=== PATIENT | female | born 1985 | race Caucasian/White ===

== ENCOUNTER → 2018-01-16 08:09 | Outpatient (CLI) | payer OTHER, SELFPAY ==
[2018-01-16 08:32] LABS: Initial Volume 1.9 mL; Semen 30 min. Liquification? YES
== END ==
PROVIDERS: Family Provider Obstetrics & Gynecology; PCP Obstetrics & Gynecology; Visit Provider Obstetrics & Gynecology
DX: Z87.42 Personal history of other diseases of the female genital tract (principal)
CPT/HCPCS: 58323

== ENCOUNTER → 2018-02-11 07:19 | Outpatient (CLI) | payer OTHER, SELFPAY ==
[2018-02-11 08:20] LABS: Semen 30 min. Liquification? Yes
[2018-02-11 08:21] LABS: Final Volume 0.5 mL; Initial Volume 1.5 mL
== END ==
PROVIDERS: Family Provider Obstetrics & Gynecology; Visit Provider Specialist
DX: N97.0 Female infertility associated with anovulation (principal)
CPT/HCPCS: 58323

== ENCOUNTER → 2018-03-07 08:56 | Outpatient (CLI) | payer OTHER, SELFPAY ==
[2018-03-07 10:06] LABS: Initial Volume 3.5 mL; Semen 30 min. Liquification? Yes
[2018-03-07 10:15] LABS: Final Volume 0.5 mL
== END ==
PROVIDERS: Family Provider Obstetrics & Gynecology; Visit Provider Obstetrics & Gynecology
DX: N97.0 Female infertility associated with anovulation (principal)
CPT/HCPCS: 58323

== ENCOUNTER → 2018-10-07 06:59 | Outpatient (CLI) | payer OTHER, SELFPAY ==
[2018-10-07 07:59] LABS: HCG Quantitative /Beta subunit < 2.39 mIU/mL
== END ==
PROVIDERS: Visit Provider Obstetrics & Gynecology Reproductive Endocrinology
DX: Z32.00 Encounter for pregnancy test, result unknown (principal)
CPT/HCPCS: 36415; 84702

== ENCOUNTER → 2019-03-01 08:32 | Outpatient (CLI) | payer OTHER, SELFPAY ==
[2019-03-01 09:26] LABS: HCG Quantitative /Beta subunit < 2.39 mIU/mL
== END ==
PROVIDERS: Visit Provider Obstetrics & Gynecology Reproductive Endocrinology
DX: Z32.01 Encounter for pregnancy test, result positive (principal)
CPT/HCPCS: 36415; 84702

== ENCOUNTER → 2019-07-23 12:04 | Outpatient (CLI) | payer OTHER, SELFPAY ==
[2019-07-23 12:43] LABS: Add Manual Diff / Slide Review NO; Basophils Absolute Auto 0 /uL (0-100); Basophils Percent Auto 0.6 % (0-2); Eosinophils Absolute Auto 100 /uL (0-450); Hematocrit 35.5 % (36-46); Hemoglobin 12.7 g/dL (12.0-16.0); Lymphocytes Absolute Auto 2100 /uL (1100-4500); Lymphocytes Percent Auto 29.3 % (25-40); Mean Corpuscular HGB Conc 35.6 % (30-36); Monocytes Absolute Auto 400 /uL (0-900); Monocytes Percent Auto 5.9 % (3-14); Neutrophils Absolute Auto 4500 /uL (1500-7000); Neutrophils Percent Auto 63.2 % (50-75); Platelet Count 285 X10^3/uL (150-400); Red Blood Cell Count 4.08 X10^6/uL (4.0-5.2); Red Cell Distribution Width 12.8 % (11.6-14.8); White Blood Cell Count 7.1 X10^3/uL (4.5-11.0)
[2019-07-23 15:34] LABS: Appearance Urine UA CLEAR; Bilirubin Urine UA NEGATIVE (NEGATIVE); Color Urine UA YELLOW; Glucose Urine UA NEGATIVE (Negative); Ketones Urine UA NEGATIVE (NEGATIVE); Leukocyte Esterase Urine UA NEGATIVE (NEGATIVE); Nitrite Urine UA NEGATIVE (Negative); Occult Blood Urine UA NEGATIVE (Negative); Protein Urine UA NEGATIVE (Negative); Urobilinogen Urine UA 0.2 E.U./dL (0.2)
[2019-07-23 15:39] LABS: pH Urine UA 6.5 (4.5-8.0)
[2019-07-23 16:03] LABS: Hepatitis B Surface Antigen NEGATIVE s/c (NEGATIVE)
[2019-07-23 16:23] LABS: HIV 1 & 2 Ab/Ag 4th Gen Combo NEGATIVE (NEGATIVE); Hep C Virus Ab w/Reflex Quant NEGATIVE s/c (NEGATIVE)
[2019-07-25 19:57] LABS: RPR Screen Nonreactive (Nonreactive)
== END ==
PROVIDERS: PCP Family Medicine; Referring Provider Specialist; Visit Provider Specialist
DX: Z34.81 Encounter for supervision of other normal pregnancy, first trimester (principal)
CPT/HCPCS: 36415; 80055; 81003; 86787; 86803; 86850; 86900; 86901; 87086; 87389

== ENCOUNTER → 2019-08-23 10:15 | Outpatient (CLI) | payer OTHER, SELFPAY ==
[2019-08-25 20:35] LABS: AFP, Serum 55.2 ng/mL (.); Estriol, Free 1.11 ng/mL (.); Inhibin A, MoM 1.03 (.); Maternal Ethnicity Caucasian (.); Maternal Weight 130 lbs (.); Number of Fetuses No (.); OSBR Risk 1 IN 4273 (.); Results Report (.); Test Results *Screen Negative* (.); hCG, MoM 1.05 (.); hCG, Serum 39565 mIU/mL (.)
== END ==
PROVIDERS: PCP Family Medicine; Referring Provider Specialist; Visit Provider Specialist
DX: Z34.82 Encounter for supervision of other normal pregnancy, second trimester (principal); Z3A.16 16 weeks gestation of pregnancy
CPT/HCPCS: 36415; 82105; 82677; 84702; 86336

== ENCOUNTER → 2019-09-16 10:01 | Outpatient (CLI) | payer OTHER, SELFPAY ==
--- NOTE | 2019-09-16 10:02 | DI.US.S_ITS ---
PROCEDURE: US OB >= 14 WEEKS FETUS INDICATIONS: ANATOMY OUTSIDE/PRIOR DATING DATA: Last menstrual period (LMP): Unknown. LMP-based estimated date of delivery (KARAN): N./A. First dating scan (date and location): Dr. Jarquin's office, 06/25/19. Estimated date of delivery (KARAN) from first dating scan: 01/29/20. TECHNIQUE: Real-time scanning was performed of the fetus, with image documentation and biometric measurements. COMPARISON: [facility], , OB <= 14 WEEKS FETUS, 06/25/2019, 16:56. FINDINGS: General: A single live intrauterine gestation is present. Presentation: Breech. Placenta: Placental position is left fundal, without previa. Amniotic fluid index: 14.5 cm, normal range is 5-24 cm. heart rate: 152 beats per minute. Maternal cervical canal: 3.9 cm long. Normal lower limit is 2.5 cm. biometrics: Biparietal diameter: 5.1 cm equals 21 weeks 3 days Head circumference: 18.9 cm equals 21 weeks 1 day Abdominal circumference: 13.6 cm equals 20 weeks 5 days Femur length: 3.5 cm equals 21 weeks 1 day Estimated gestational age from initial scan: 20 weeks 5 days Composite gestational age from present scan: 21 weeks 1 day Estimated weight and percentile: 390 g, 59th percentile Measurement variability for biometric dating: +/- 7 days from 14 weeks to 15 weeks 6 days gestation, +/- 10 days from 16 weeks to 21 weeks 6 days gestation, +/- 2 weeks from 22 weeks to 27 weeks 6 days gestation, +/- 3 weeks for 28 weeks gestation or later. weight reference: 4500 g or EFW >90/95% is considered macrosomia or large for gestational age. EFW <10% is small for gestational age. EFW 5% or less is considered intra-uterine growth restriction. Anatomic survey: Neuro: Ventricles are non-dilated at less than 10 mm. Cisterna magna is normal at 3-11 mm. Cerebellum is normal in size and morphology. Nuchal skin fold: Normal at less than 6 mm between 14-21 weeks gestational age. Face: Nose and lips, facial profile are normal. Spine: No evidence for spina bifida. Heart: 4-chambered heart is present, with normal ventricular outflow tracts. Diaphragm: Diaphragm is intact. Stomach: Left-sided stomach is present. Kidneys: No hydronephrosis. Normal is less than 5 mm in 2nd trimester, less than 7 mm in 3rd trimester. Cord: 3-vessel cord has orthotopic insertion. Bladder: Normal in size. Extremities: All 4 extremities identified. IMPRESSION: A single live intrauterine is seen. No significant discrepancy is found between the estimated gestational age based on these images and the estimated gestational age based upon the 1st dating scan. No anatomic abnormalities are identified. Dictated by: Aramis Morton M.D. on 09/16/2019 at 11:58 Approved by: Aramis Morton M.D. on 09/16/2019 at 12:01
== END ==
PROVIDERS: PCP Family Medicine; Referring Provider Specialist; Visit Provider Specialist
DX: Z34.82 Encounter for supervision of other normal pregnancy, second trimester (principal); Z3A.21 21 weeks gestation of pregnancy
CPT/HCPCS: 76811

== ENCOUNTER → 2019-10-23 08:11 | Outpatient (CLI) | payer OTHER, SELFPAY ==
[2019-10-23 10:44] LABS: Hemoglobin 9.8 g/dL (12.0-16.0)
[2019-10-23 11:44] LABS: GTT (PREG) 1 Hour PP 50gm Dose 101 mg/dL (76-139)
== END ==
PROVIDERS: PCP Family Medicine; Referring Provider Specialist; Visit Provider Specialist
DX: Z34.82 Encounter for supervision of other normal pregnancy, second trimester (principal)
CPT/HCPCS: 82950; 85014; 85018

== ENCOUNTER → 2019-12-01 12:15 | Outpatient (CLI) | payer OTHER, SELFPAY | PROVIDERS: PCP Family Medicine; Visit Provider Specialist | DX: Z34.83 Encounter for supervision of other normal pregnancy, third trimester (principal) | CPT/HCPCS: 87086 ==

== ENCOUNTER → 2019-12-29 09:49 | Outpatient (CLI) | payer OTHER, SELFPAY ==
[2019-12-30 11:13] LABS: Strep Grp B PCR NEG for Grp B Strep
== END ==
PROVIDERS: PCP Family Medicine; Visit Provider Specialist
DX: Z34.83 Encounter for supervision of other normal pregnancy, third trimester (principal); Z3A.35 35 weeks gestation of pregnancy
CPT/HCPCS: 87653

== ENCOUNTER 2020-01-28 11:45 | Inpatient (IN) | payer OTHER, SELFPAY ==
[2020-01-28 12:26] LABS: Add Manual Diff / Slide Review NO; Basophils Absolute Auto 100 /uL (0-100); Eosinophils Absolute Auto 100 /uL (0-450); Eosinophils Percent Auto 1.2 % (2-4); Hematocrit 31.6 % (36-46); Hemoglobin 11.2 g/dL (12.0-16.0); Lymphocytes Absolute Auto 2300 /uL (1100-4500); Lymphocytes Percent Auto 32.5 % (25-40); Mean Corpuscular HGB Conc 35.5 % (30-36); Mean Corpuscular Hemoglobin 32.4 PG (26-34); Mean Corpuscular Volume 91.4 fL (80-100); Monocytes Absolute Auto 400 /uL (0-900); Monocytes Percent Auto 5.8 % (3-14); Neutrophils Absolute Auto 4300 /uL (1500-7000); Neutrophils Percent Auto 59.5 % (50-75); Platelet Count 232 X10^3/uL (150-400); Red Blood Cell Count 3.45 X10^6/uL (4.0-5.2); Red Cell Distribution Width 12.8 % (11.6-14.8); White Blood Cell Count 7.2 X10^3/uL (4.5-11.0)
[2020-01-28 13:20] LABS: COVID19 -Nasal RAPID Negative (Negative)
[2020-01-28 14:54] VITALS: BP 99/54
[2020-01-28] MEDS: LACTATED RINGERS 1,000 ML 100 ML IV (15:13)
[2020-01-28] MEDS: FENT 2MCG/ML BUPIV 0.125% EPI 200 MCG/100 ML PLAST..BAG 10 MCG EPIDURAL (16:00)
[2020-01-28] MEDS: OXYTOCIN 10 UNIT/ML VIAL 20 UNIT (16:50)
--- NOTE | 2020-01-28 18:10 | PM.OBHP.1 ---
OB HPI Date/Time Date of admission: 01/28/20 Date Patient Seen: 01/28/20 Time Patient Seen: 12:00 History of Present Condition Chief complaint: maternity : 2 Para: 1 Estimated Date of Delivery: 02/01/20 Estimated Gestational Age (weeks): 39 Narrative: Rosie Gordon is a 34 year old female admitted for AROM induction at 39 weeks for advanced cervical dilation Indications Indication for induction OB: history of rapid labor History of Present care: good care, initiated at week # (6), number of visits (15) and pounds weight gain (22) Dating criteria: other (IVF) Ultrasounds: normal mid trimester US Obstetrical complications: none Medical complications: none Preadmission Labs Blood type: A (+) positive -: Antibody screen: negative, GBS status: negative, HBsAG: negative, HIV: negative and RPR/VDLR: negative -: Chlamydia screen: not detected and Gonorrhea screen: not detected -: Rubella: immune and Varicella: immune HCAB: negative Sequential screen: Negative 1 hr GTT: 104 Prior (ies) History: 07/01/2016 7 lb 11 oz female epidural catheter Evaluation Evaluation Baseline heart rate: 130 Variability: Moderate (11-25) monitor accelerations: Present monitor decelerations: Absent Contraction Frequency (minutes): 5 Uterine Contraction Intensity: Moderate Category of Tracing: Reactive Cervical dilation (cm): 5 Cervical effacement (%): 75 station: -1 Laboratory results: Laboratory Tests 01/28/20 01/28/20 01/28/20 12:07 12:15 12:15 WBC 7.2 RBC 3.45 L Hgb 11.2 L Hct 31.6 L MCV 91.4 MCH 32.4 MCHC 35.5 RDW 12.8 Plt Count 232 Neut % (Auto) 59.5 Lymph % (Auto) 32.5 [place] % (Auto) 5.8 Eos % (Auto) 1.2 L Baso % (Auto) 1.0 Neut # (Auto) 4300 Lymph # (Auto) 2300 [place] # (Auto) 400 Eos # (Auto) 100 Baso # (Auto) 100 COVID-19 PCR Negative Blood Type A Positive Antibody Screen Negative [facility] Medical History (Updated 01/28/20 @ 18:01 by Aracely Jaruqin MD) History of infertility (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) Migraines (Acute) Spontaneous vaginal delivery (Inactive) Surgical History (Updated 11/06/17 @ 11:55 by Patricia Ramírez) History of third molar tooth extraction (Resolved 2001) Status post loop electrosurgical excision procedure (LEEP) of cervix (Resolved 2010) Family History (Updated 06/24/19 @ 17:40 by Sadie Diaz RN) Family/Other Heart disease Family/Other Diabetes mellitus Social History marital status: education level: master's degree occupational status: employed special amauri needs: No Smoking Status: Never smoker second hand exposure: No alcohol intake: former substance use type: does not use Meds Home Medications and Allergies Home Medications Medication Instructions Recorded Confirmed Type prenat.vits,delonte,cbm-ozum-datxj 1 tab PO DAILY 07/23/19 01/27/20 History omeprazole 40 mg capsule,delayed 40 mg PO DAILY #30 cap 12/01/19 01/28/20 Rx release Allergies Allergy/AdvReac Type Severity Reaction Status Date / Time Penicillins [PENICILLINS] Allergy Mild HIVES Verified 01/28/20 14:57 Review of Systems Review of Systems Narrative: Patient denies headaches, scotomata, epigastric pain. Good movement. No rupture membranes. ROS: Yes All systems reviewed with the patient and are negative except as otherwise documented Exam Vital Signs (past 8 hours): - 01/28/20 14:54 Blood Pressure 99/54 L Narrative Exam Narrative: HEENT exam within normal limits. Lungs are clear to auscultation percussion. Heart is regular rate and rhythm no S3-S4 or murmurs. Abdomen is soft, nontender. Fetus is vertex. Extremities without edema and nontender. Objective Labs Result Diagrams: 01/28/20 12:15 Labs: Laboratory Results - last 24 hr 01/28/20 01/28/20 01/28/20 12:07 12:15 12:15 WBC 7.2 RBC 3.45 L Hgb 11.2 L Hct 31.6 L MCV 91.4 MCH 32.4 MCHC 35.5 RDW 12.8 Plt Count 232 Neut % (Auto) 59.5 Lymph % (Auto) 32.5 [place] % (Auto) 5.8 Eos % (Auto) 1.2 L Baso % (Auto) 1.0 Neut # (Auto) 4300 Lymph # (Auto) 2300 [place] # (Auto) 400 Eos # (Auto) 100 Baso # (Auto) 100 COVID-19 PCR Negative Blood Type A Positive Antibody Screen Negative Assessment and Plan Assessment and Plan Assessment and Plan narrative: 39 week gestation with advanced cervical dilation with concern for fast labor who was admitted for AROM induction. She is requesting epidural catheter for pain control. Anticipate vaginal delivery.
--- NOTE | 2020-01-28 18:15 | P.PCNOB_ITS ---
Labor & Delivery Delivery date: 01/28/20 Intrapartal events: None Induction method: AROM Delivery monitor: external FHT and external uterine Route of delivery: L&D Laceration Description: None Estimated blood loss (mL): 200 Narrative: Patient arrived on Labor and delivery for AROM induction. She was AROM for clear fluid. She received an epidural catheter for pain control. heart tones category 1 to category 2 throughout labor. heart tones with 2nd stage of labor were baseline 90s. This was treated with position change, O2, and fluids. She had a spontaneous vaginal delivery of a viable male infant. was placed on the maternal abdomen and after cord stopped pulsating the cord was clamped, cut, and cord bloods obtained. The placenta de livered spontaneously, intact, with 3 vessels. There were no cervical, vaginal, or perineal tears. Both infant and mother doing well. [place] Baby 1: gender: Male Presentation: vertex position: Right Occiput Anterior Placenta delivery description: Spontaneous cord vessel description: 3 Vessels score (1 min): 9 score (5 min): 9 Plan for aftercare: Routine care
[2020-01-28] MEDS: IBUPROFEN 600 MG TABLET PO (18:35)
[2020-01-29] MEDS: IBUPROFEN 600 MG TABLET PO ×2 (00:21→07:57)
[2020-01-29 05:49] LABS: Hematocrit 26.7 % (36-46); Hemoglobin 9.5 g/dL (12.0-16.0)
--- NOTE | 2020-01-29 08:50 | PM.OBDS.1 ---
Discharge Providers Provider Date of admission: 01/28/20 11:45 Discharge Date: 01/29/20 Primary care physician: Cyrus Payton MD Consults: 01/28/20 11:48 Consult to Anesthesiology Urgent Comment: Consulting Provider: Anesthesiologist Reason for consultation: Epidural Has provider been notified: No 01/29/20 18:02 Consult to Control Clerk Routine Comment: Discharge provider: Aracely Jarquin MD Summary Hospital Course Date Patient Seen: 01/29/20 Time Patient Seen: 08:50 Procedures: Epidural catheter, Spontaneous vaginal delivery Hospital Course: Patient arrived on Labor and delivery for AROM induction for fast labor and advanced cervical dilation. She received an epidural catheter for pain control. She had a spontaneous vaginal delivery with no tears. Patient is urinating and ambulating well. Pain is minimal. She denies any headaches, scotomata, epigastric pain. Peripartum Data Delivery Method: Natural Vaginal Laceration Description: None Procedures: Epidural catheter, spontaneous vaginal delivery complications: none [place] 1: Gender: Male Disposition of : home Discharge Diagnosis (1) Vaginal delivery: Status: Acute Status at Discharge Cognitive/behavioral status at discharge: oriented Functional status at discharge: independent ambulation Overall status at discharge: patient is progressing back to baseline Time Spent with Patient Time attestation: Total time spent providing and/or coordinating discharge services: Time spent: Less than 30 minutes Objective Labs Result Diagrams: 01/29/20 05:25 Labs: Laboratory Results - last 24 hr 01/28/20 01/28/20 01/28/20 12:07 12:15 12:15 WBC 7.2 RBC 3.45 L Hgb 11.2 L Hct 31.6 L MCV 91.4 MCH 32.4 MCHC 35.5 RDW 12.8 Plt Count 232 Neut % (Auto) 59.5 Lymph % (Auto) 32.5 [place] % (Auto) 5.8 Eos % (Auto) 1.2 L Baso % (Auto) 1.0 Neut # (Auto) 4300 Lymph # (Auto) 2300 [place] # (Auto) 400 Eos # (Auto) 100 Baso # (Auto) 100 COVID-19 PCR Negative Blood Type A Positive Antibody Screen Negative 01/29/20 05:25 WBC RBC Hgb 9.5 L Hct 26.7 L MCV MCH MCHC RDW Plt Count Neut % (Auto) Lymph % (Auto) [place] % (Auto) Eos % (Auto) Baso % (Auto) Neut # (Auto) Lymph # (Auto) [place] # (Auto) Eos # (Auto) Baso # (Auto) COVID-19 PCR Blood Type Antibody Screen Exam Vital Signs (past 8 hours): Blood pressure 102/67, pulse 60, temperature 98.1? Narrative Exam Narrative: Abdomen is soft, nontender. Uterus is firm, at U, nontender. Mild lochia. Extremities without edema and nontender. Patient is Rh positive, rubella immune, received the Tdap in the 3rd trimester Discharge Plan Discharge Plan Patient Disposition: Home Discharge orders & Medications Prescriptions: Continued prenat.vits,delonte,cac-bppv-nueoj Tablet 1 tab PO DAILY RF: 0 Discontinued omeprazole 40 mg capsule,delayed release(DR/EC) 40 mg PO DAILY Qty: 30 RF: 1 Follow up/Referrals: Aracely Jarquin MD [Physician] - 1 Month Cyrus Payton MD [Primary Care Provider] - Diet/Activity/Treatments Diet: Regular Activity: Nothing in vagina for 4 weeks Skin/Wound/Dressing Care Report to your healthcare provider any signs of infection, such as:: chills, fever and increased pain Discharge Data Primary Care Provider: Cyrus Payton Attending Provider: Aracely Jarquin Admit Date/Time: 01/28/20 11:45
== END 2020-01-29 11:30 | disposition home or self-care (01) | DRG 807 ==
PROVIDERS: Admitting Provider Specialist; PCP Family Medicine; Referring Provider Specialist; Visit Provider Specialist
DX: O76 Abnormality in fetal heart rate and rhythm complicating labor and delivery (principal); Z37.0 Single live birth; Z3A.39 39 weeks gestation of pregnancy
CPT/HCPCS: 01967; 36415; 59050; 59400; 76815; 85014; 85018; 85025; 86850; 86900; 86901; 87635; G0378; G0379; J2590

== ENCOUNTER → 2021-05-16 07:02 | Outpatient (CLI) | payer OTHER, SELFPAY ==
[2021-05-16 09:15] LABS: HCG Quantitative /Beta subunit 13.3 mIU/mL
== END ==
PROVIDERS: PCP Family Medicine; Referring Provider Obstetrics & Gynecology; Visit Provider Obstetrics & Gynecology
DX: Z34.81 Encounter for supervision of other normal pregnancy, first trimester (principal)
CPT/HCPCS: 36415; 84702

== ENCOUNTER → 2021-07-27 09:26 | Outpatient (CLI) | payer OTHER, SELFPAY ==
[2021-07-27 09:52] LABS: Final Volume 0.5 mL; Semen 30 min. Liquification? Yes
== END ==
PROVIDERS: PCP Family Medicine; Referring Provider Obstetrics & Gynecology; Visit Provider Obstetrics & Gynecology
DX: N97.0 Female infertility associated with anovulation (principal)
CPT/HCPCS: 58323

== ENCOUNTER → 2021-08-24 12:28 | Outpatient (CLI) | payer OTHER, SELFPAY ==
[2021-08-24 13:11] LABS: Initial Volume 3.5 mL; Semen 30 min. Liquification? Yes
[2021-08-24 13:49] LABS: Final Volume 0.5 mL
== END ==
PROVIDERS: PCP Family Medicine; Referring Provider Obstetrics & Gynecology; Visit Provider Obstetrics & Gynecology
DX: Z87.42 Personal history of other diseases of the female genital tract (principal)
CPT/HCPCS: 58323

== ENCOUNTER → 2021-10-23 06:53 | Outpatient (CLI) | payer OTHER, SELFPAY ==
[2021-10-23 08:27] LABS: Progesterone, Total 1.25 ng/mL
[2021-10-23 08:29] LABS: Free T4, Direct Thyroxine 1.29 ng/dL (0.78-2.19)
[2021-10-23 08:43] LABS: Thyroid Stimulating Hormone 4.07 uIU/mL (0.47-4.68)
[2021-10-25 16:37] LABS: ANA Screen, IFA Negative (.)
[2021-10-25 21:37] LABS: Dilute Russell Viper Venom 37.2 sec (0.0-47.0); Lupus Reflex Interpretation Comment: (.); PTT-LA 36.8 sec (0.0-51.9)
[2021-11-14 12:06] LABS: Cardiolipin IgA Negative
== END ==
PROVIDERS: PCP Family Medicine; Referring Provider Obstetrics & Gynecology; Visit Provider Obstetrics & Gynecology
DX: N96 Recurrent pregnancy loss (principal)
CPT/HCPCS: 36415; 81240; 81241; 81291; 83520; 84144; 84439; 84443; 85598; 85613; 86038; 86147; 86148

== ENCOUNTER → 2022-04-22 06:35 | Outpatient (CLI) | payer OTHER, SELFPAY ==
[2022-04-22 08:27] LABS: HCG Quantitative /Beta subunit 5130.1 mIU/mL
== END ==
PROVIDERS: PCP Family Medicine; Referring Provider Obstetrics & Gynecology; Visit Provider Obstetrics & Gynecology
DX: N91.2 Amenorrhea, unspecified (principal)
CPT/HCPCS: 36415; 84702

== ENCOUNTER → 2022-08-16 10:12 | Outpatient (CLI) | payer OTHER, SELFPAY ==
--- NOTE | 2022-08-16 10:14 | DI.US.S_ITS ---
PROCEDURE: US OB <= 14 WEEKS FETUS INDICATIONS: Early OB US OUTSIDE/PRIOR DATING DATA: Last menstrual period (LMP): 06/25/2022 LMP-based estimated date of delivery (KARAN): 04/01/2023 TECHNIQUE: Real-time scanning was performed of the fetus and maternal pelvic organs, with image documentation. Endovaginal scanning was also performed to better visualize the fetus and maternal ovaries. COMPARISON: [facility], US, US OB <= 14 WEEKS FETUS, 06/25/2019, 16:56. FINDINGS: Intrauterine gestational sac and yolk sac are seen. No definite pole. Mean gestational sac diameter is 1.5 cm, compatible with an estimated gestational age of 6 weeks 2 days. A probable perigestational sac hemorrhage is seen measuring 0.6 cm in maximum dimension. Maternal organs: Left ovarian corpus luteal cyst. IMPRESSION: Intrauterine gestational sac and yolk sac are seen without a definite pole. Mean gestational sac diameter is compatible with an estimated gestational age of 6 weeks 2 days. Findings are may be related to normal early although early failure is not excluded. Recommend correlation with serial beta HCG values and follow-up ultrasound. We strive to produce accurate, complete, and clear reports of imaging services. To assist us in improving patient care, this report was composed using standard report templates and voice recognition software. Therefore, it may contain abnormal punctuation, insertions and/or omissions. Occasional wrong-word or sound-alike substitutions may occur. Though we review the report and make efforts to correct it, we do recommend that the report be read carefully in proper context to recognize any text inaccuracies. Approved by: Diego Brooke M.D. on 08/16/2022 at 12:30
== END ==
PROVIDERS: PCP Family Medicine; Referring Provider Obstetrics & Gynecology; Visit Provider Obstetrics & Gynecology
DX: O34.81 Maternal care for other abnormalities of pelvic organs, first trimester (principal); N83.12 Corpus luteum cyst of left ovary; Z3A.01 Less than 8 weeks gestation of pregnancy; Z87.42 Personal history of other diseases of the female genital tract
CPT/HCPCS: 76801; 76817

== ENCOUNTER 2022-08-26 07:34 | Day surgery (SDC) | payer OTHER, SELFPAY ==
[2022-08-26] VITALS (7 sets, daily range): BP systolic 83–113; BP diastolic 43–71; PULSE 67–81; RESP 10–16; TEMP 36.2–36.7; O2SAT 97–100; BMI 19.5
--- NOTE | 2022-08-26 08:29 | PM.PREOP ---
Pre-operative Note COVID-19 COVID-19 status: Not tested Criteria for continued procedure: Possibility delay results in more complex future surgery or treatment Interval Note History & Physical reviewed/Exam performed by Physician: Yes Changes to H&P: No
--- NOTE | 2022-08-26 08:38 | PM.GYNHP.1 ---
History of Present Illness History of Present Illness Reason for admission: missed Narrative: Rosie Gordon is a 36 year old female here for suction D&C for incomplete A/B PFSH Medical History (Updated 08/23/22 @ 12:10 by Aracely Jarquin MD) History of infertility (08/16/16) Migraine with aura and without status migrainosus, not intractable (11/22/15) Spontaneous vaginal delivery Surgical History (Updated 08/13/22 @ 15:37 by Kassy Alejandre RN) History of third molar tooth extraction (2001) History of tonsillectomy Status post loop electrosurgical excision procedure (LEEP) of cervix (2010) Family History (Updated 08/13/22 @ 15:36 by Kassy Alejandre RN) Family/Other Heart disease Brother Hypothyroidism Social History marital status: number of children: 2 household members: spouse and children lives independently: Yes caregiver/support person: Yes housing: house pets and animals: Yes (2 dogs) education level: master's degree occupational status: employed (dentist) current occupational exposures/hazards: No special amauri needs: No travel history: other (Going to [place] in September) seatbelt use: always helmet use: Yes water heater temp set < 120 deg: Yes working smoke detector in home: Yes fire extinguisher in home: Yes carbon monox detector in home: Yes firearms in home: Yes firearms unloaded and locked: Yes do you feel safe at home: Yes Smoking Status: Never smoker second hand exposure: No alcohol intake: former substance use type: does not use during the past year weight has: remained stable well-balanced diet: daily or most days daily servings fruits/ve or more times/day caffeine: Yes (1 cup coffee in AM, aware of 200mg limit) Type(s) of exercise: bicycling (stationary bike) and running Meds Home Medications and Allergies Home Medications Medication Instructions Recorded Confirmed Type prenat.vits,delonte,ldt-vtap-gaxjr 1 tab PO DAILY 07/23/19 08/23/22 History cholecalciferol (vitamin D3) 50 50 mcg PO .every other day 08/13/22 08/26/22 History mcg (2,000 unit) capsule ferrous sulfate 325 mg (65 mg 325 mg PO DAILY 08/13/22 08/26/22 History iron) tablet (Feosol) progesterone micronized 200 mg 200 mg PO BID #60 caps 08/13/22 08/26/22 Rx capsule Allergies Allergy/AdvReac Type Severity Reaction Status Date / Time Penicillins [PENICILLINS] Allergy Mild HIVES Verified 08/26/22 07:49 Review of Systems Review of Systems Narrative: Patient has not had any vaginal bleeding or cramping. Ultrasound confirmation of demise at 7 weeks x2 48 hours apart. Exam Vital Signs (past 8 hours): - 08/26/22 07:54 Temperature 97.2 F L Pulse Rate 79 Respiratory Rate 16 Blood Pressure 113/71 Pulse Oximetry 100 Oxygen Delivery Method Room Air Oxygen Delivery Method Room Air Narrative Exam Narrative: HEENT exam within normal limits. Lungs are clear to auscultation percussion. Heart is regular rate and rhythm no S3-S4 murmurs. Abdomen is soft, nontender. Normal external genitalia. Ultrasound performed 08/25/2022 no heartbeat seen. Extremities without edema and nontender. Assessment & Plan Assessment and plan (1) Missed with demise before 20 completed weeks of gestation: Status: Acute Assessment & Plan narrative: Suction D&C. Consent form was reviewed with the patient. Minimal risk of reaction to medication or anesthesia, infection, bleeding, perforation of uterus that could need additional surgery to repair damage to internal structures such as bowel, bladder, ureters. Consent form signed on 08/25/2022 and questions answered. Time Spent With Patient Time with patient: less than 30 minutes
--- NOTE | 2022-08-26 08:44 | SUR.OPER ---
Lithotomy on padded OR bed, head on pillow, arms secured on padded arm boards at <90 degrees abduction. Legs secured in padded yellow fins stirrups.
--- NOTE | 2022-08-26 09:04 | P.OP_ITS ---
Operative Date/Time/Diagnoses Date of procedure: 08/26/22 Time of procedure: 09:04 Pre-op diagnosis: Missed Post-op diagnosis: same Procedure & Clinicians Procedure: Suction D&C Same procedure as scheduled: Yes Indications: Documented demise at 7 weeks Surgeon: Aracely Jarquin Click Yes if Unassisted: Yes Anesthesia Type: General Operative Notes Findings: Moderate amount of retained products of conception Closure Type: not applicable Specimen(s): other (Uterine contents, products of conception, sent for chromosome analysis) Estimated Blood Loss (mL): 30 Blood products transfused: none Procedure in detail: Patient was brought to the operating room where she underwent general anesthesia. She was prepped and draped in the usual sterile fashion after being placed in low Yellofin stirrups. A check system was reviewed with the staff in the room prior to beginning the case. No antibiotics were indicated. A single- tooth tenaculum was placed on the anterior lip of the cervix and the cervix dilated to a number 8 Hegar dilator. A 7. Suction curette was placed through the cervix into the uterus. Tissue was removed. Sharp curetting was performed. The suction curette was replaced to remove any remaining tissue. The tissue w as sent for chromosome analysis. Patient went to recovery room in stable condition. Counts of instruments and sponges were correct. Complications: none Post-operative Condition: stable Disposition: same day surgery Plan for aftercare: Follow-up in 2 weeks unless concerns prior to that time.
== END 2022-08-26 09:39 | disposition home or self-care (01) ==
PROVIDERS: PCP Family Medicine; Referring Provider Specialist; Visit Provider Specialist
PROC: (CPT 58120; principal; 2022-08-26 08:45)
DX: O02.1 Missed abortion (principal); Z3A.01 Less than 8 weeks gestation of pregnancy
CPT/HCPCS: 59820; J1100; J1885; J2250; J2405; J2704; J3010

== ENCOUNTER → 2022-09-05 16:27 | Outpatient (CLI) | payer OTHER, SELFPAY ==
[2022-09-05 17:17] LABS: Add Manual Diff / Slide Review NO; Basophils Absolute Auto 0 /uL (0-100); Basophils Percent Auto 0.5 % (0-2); Eosinophils Absolute Auto 100 /uL (0-450); Eosinophils Percent Auto 0.9 % (2-4); Hematocrit 36.4 % (36-46); Hemoglobin 12.5 g/dL (12.0-16.0); Lymphocytes Absolute Auto 2500 /uL (1100-4500); Mean Corpuscular HGB Conc 34.4 % (30-36); Mean Corpuscular Hemoglobin 30.5 PG (26-34); Mean Corpuscular Volume 88.7 fL (80-100); Monocytes Absolute Auto 500 /uL (0-900); Neutrophils Absolute Auto 3600 /uL (1500-7000); Neutrophils Percent Auto 53.6 % (50-75); Platelet Count 287 X10^3/uL (150-400); Red Cell Distribution Width 12.6 % (11.6-14.8); White Blood Cell Count 6.6 X10^3/uL (4.5-11.0)
[2022-09-05 17:44] LABS: Alanine Aminotransferase 16 IU/L (<35); Albumin 4.5 g/dL (3.5-5.0); Albumin Globulin Ratio 1.5 (1.0-2.8); Alkaline Phosphatase 39 U/L (38-126); Aspartate Aminotransferase 23 IU/L (14-36); BUN Creatinine Ratio 18.1 (6-22); Bilirubin Total 1.8 mg/dL (0.2-1.3); Blood Urea Nitrogen 13 mg/dL (7-17); Calcium 9.4 mg/dL (8.4-10.2); Carbon Dioxide 30 mmol/L (22-32); Chloride 100 mmol/L (98-107); Cholesterol 186 mg/dL (140-199); Estimated Glomerular Filt Rate > 60 mL/min (>60); Globulin 3.1 g/dL (1.7-4.1); Glucose 100 mg/dL (70-100); HDL Cholesterol 77 mg/dL (40-60); HEMOLYSIS < 15 (0-50); LDL Cholesterol Calculated 100 mg/dL (<100); Potassium 3.7 mmol/L (3.4-5.1); Sodium 138 mmol/L (137-145); Total Protein 7.6 g/dL (6.3-8.2); Triglycerides 45 mg/dL (35-150)
[2022-09-05 18:13] LABS: TSH w/ Reflex to FT4 3.05 uIU/mL (0.47-4.68)
== END ==
PROVIDERS: PCP Family Medicine; Referring Provider Family Medicine; Visit Provider Family Medicine
DX: Z13.9 Encounter for screening, unspecified (principal); Z13.220 Encounter for screening for lipoid disorders
CPT/HCPCS: 36415; 80053; 80061; 84443; 85025

== ENCOUNTER → 2023-03-20 14:09 | Outpatient (CLI) | payer OTHER, SELFPAY | PROVIDERS: PCP Family Medicine; Referring Provider Obstetrics & Gynecology; Visit Provider Obstetrics & Gynecology | DX: N91.2 Amenorrhea, unspecified (principal) | CPT/HCPCS: 36415; 84702 ==

== ENCOUNTER → 2023-07-04 08:51 | Outpatient (CLI) | payer OTHER, SELFPAY ==
[2023-07-04 10:12] LABS: Add Manual Diff / Slide Review NO; Basophils Absolute Auto 0 /uL (0-100); Basophils Percent Auto 0.5 % (0-2); Eosinophils Absolute Auto 100 /uL (0-450); Eosinophils Percent Auto 0.8 % (2-4); Hematocrit 38.4 % (36-46); Hemoglobin 13.1 g/dL (12.0-16.0); Lymphocytes Absolute Auto 1800 /uL (1100-4500); Mean Corpuscular HGB Conc 34.2 % (30-36); Mean Corpuscular Hemoglobin 30.3 PG (26-34); Mean Corpuscular Volume 88.6 fL (80-100); Monocytes Absolute Auto 400 /uL (0-900); Monocytes Percent Auto 6.2 % (3-14); Neutrophils Absolute Auto 4000 /uL (1500-7000); Neutrophils Percent Auto 63.5 % (50-75); Platelet Count 292 X10^3/uL (150-400); Red Blood Cell Count 4.33 X10^6/uL (4.0-5.2); Red Cell Distribution Width 12.9 % (11.6-14.8); White Blood Cell Count 6.3 X10^3/uL (4.5-11.0)
[2023-07-04 10:48] LABS: Hepatitis B Surface Antigen NEGATIVE s/c (NEGATIVE); Rubella Antibody IgG 38.1 IU/mL (>15)
[2023-07-04 10:57] LABS: Specimen Label NATERA
[2023-07-04 11:03] LABS: HIV 1 & 2 Ab/Ag 4th Gen Combo NEGATIVE (NEGATIVE); Hep C Virus Ab w/Reflex Quant NEGATIVE s/c (NEGATIVE)
[2023-07-04 11:38] LABS: Urine N gonorrhoeae NOT DETECTED
[2023-07-04 12:19] LABS: Urine Chlamydia NOT DETECTED
[2023-07-05 09:30] LABS: RPR Screen Non Reactive (Non Reactive); Varicella IgG Antibody 452 index (Immune >165)
== END ==
LOC: LAB 08:54
PROVIDERS: PCP Family Medicine; Referring Provider Specialist; Visit Provider Specialist
DX: O09.521 Supervision of elderly multigravida, first trimester (principal)
CPT/HCPCS: 36415; 80055; 86787; 86803; 86850; 86900; 86901; 87086; 87389; 87491; 87591

== ENCOUNTER → 2023-08-27 15:26 | Outpatient (CLI) | payer OTHER, SELFPAY ==
[2023-09-01 12:43] LABS: AFP Value 56.9 ng/mL (.); Gest Age on Col Date 17.7 weeks (.); Gestational Age EDD (.); Insulin Dep Diabetes No (.); OSBR Risk 1IN 5411 (.); Results Report (.); Test Results *Screen Negative* (.)
== END ==
PROVIDERS: PCP Family Medicine; Referring Provider Obstetrics & Gynecology; Visit Provider Obstetrics & Gynecology
DX: Z34.82 Encounter for supervision of other normal pregnancy, second trimester (principal); Z3A.17 17 weeks gestation of pregnancy
CPT/HCPCS: 36415; 82105

== ENCOUNTER → 2023-09-12 09:11 | Outpatient (CLI) | payer OTHER, SELFPAY ==
--- NOTE | 2023-09-12 09:12 | DI.US.S_ITS ---
PROCEDURE: US OB >= 14 WEEKS FETUS INDICATIONS: 20 Week anatomy OUTSIDE/PRIOR DATING DATA: Last menstrual period (LMP): Unknown. LMP-based estimated date of delivery (KARAN): Not applicable. First dating scan (date and location): June 20, 2023. Estimated date of delivery (KARAN) from first dating scan: January 30, 2024. The calculations are made using the ultrasound KARAN of January 30, 2024. TECHNIQUE: Real-time scanning was performed of the fetus, with image documentation and biometric measurements. Endovaginal scanning: Not performed COMPARISON: None. FINDINGS: General: A single living intrauterine gestation is present. Presentation: Vertex. Placenta: Placental position is posterior , without previa. Lower placental edge 2 cm or less from internal cervical os qualifies as low lying placenta. Amniotic fluid index: 16.7 cm, normal range is 5-24 cm. Single deepest vertical pocket is 6.1 cm. heart rate: 155 beats per minute. Maternal cervical canal: 5.2 cm long. Normal lower limit is 2.5 cm. biometrics: Biparietal diameter: 4.7 cm, 20 weeks and 2 days Head circumference: 17.5 cm, 20 weeks and 0 days Abdominal circumference: 16.0 cm, 21 weeks and 1 day Femur length: 3.1 cm, 19 weeks and 5 days Clinically estimated gestational age: 20 weeks and 0 days Composite gestational age from present scan: 20 weeks and 2 days Estimated weight and percentile: 351 g which correlates with the 68th percentile based off estimated gestational age Anatomic survey: Neuro: Ventricles are non-dilated at less than 10 mm. Cisterna magna is normal at 3-11 mm. Cerebellum is normal in size and morphology. Nuchal skin fold: Normal at less than 6 mm between 14-21 weeks gestational age. Face: Nose and lips, facial profile are normal. Spine: No evidence for spina bifida. Heart: 4-chambered heart is present, with normal ventricular outflow tracts. Diaphragm: Diaphragm is intact. Stomach: Left-sided stomach is present. Kidneys: No hydronephrosis. Normal is less than 5 mm in 2nd trimester, less than 7 mm in 3rd trimester. Cord: 3-vessel cord has orthotopic insertion. Bladder: Normal in size. Extremities: All 4 extremities identified. IMPRESSION: Single living intrauterine gestation with estimated sonographic gestational age of approximately 20 weeks and 2 days. Estimated weight of approximately 351 g which correlates with the 68th percentile. Normal routine second-trimester anatomy screening survey. We strive to produce accurate, complete, and clear reports of imaging services. To assist us in improving patient care, this report was composed using standard report templates and voice recognition software. Therefore, it may contain abnormal punctuation, insertions and/or omissions. Occasional wrong-word or sound-alike substitutions may occur. Though we review the report and make efforts to correct it, we do recommend that the report be read carefully in proper context to recognize any text inaccuracies. Dictated by: Mitch Hernandez M.D. on 09/12/2023 at 21:24 Approved by: Mitch Hernandez M.D. on 09/12/2023 at 21:28
== END ==
LOC: US 09:12
PROVIDERS: PCP Family Medicine; Referring Provider Student in an Organized Health Care Education/Training Program; Visit Provider Student in an Organized Health Care Education/Training Program
DX: Z36.89 Encounter for other specified antenatal screening (principal); Z3A.20 20 weeks gestation of pregnancy
CPT/HCPCS: 76811

== ENCOUNTER → 2023-11-03 15:43 | Outpatient (CLI) | payer OTHER, SELFPAY ==
[2023-11-03 17:45] LABS: Hematocrit 28.5 % (36-46); Hemoglobin 10.1 g/dL (12.0-16.0)
[2023-11-03 18:13] LABS: GTT (PREG) 1 Hour PP 50gm Dose 142 mg/dL (76-139)
== END ==
PROVIDERS: PCP Family Medicine; Referring Provider Obstetrics & Gynecology; Visit Provider Obstetrics & Gynecology
DX: Z34.82 Encounter for supervision of other normal pregnancy, second trimester (principal); Z3A.26 26 weeks gestation of pregnancy
CPT/HCPCS: 36415; 82950; 85014; 85018

== ENCOUNTER → 2023-11-05 07:19 | Outpatient (CLI) | payer OTHER, SELFPAY ==
[2023-11-05 08:48] LABS: Glucose Fasting Gestational 84 mg/dL (76-95)
[2023-11-05 09:34] LABS: Glucose 1 Hour Gest 90 mg/dL (76-180)
[2023-11-05 10:42] LABS: Glucose 2 Hour Gest 141 mg/dL (76-155)
[2023-11-05 10:54] LABS: Glucose Tol Interp,Gestational INTERPRETATION
[2023-11-05 12:48] LABS: Glucose 3 Hour Gest 109 mg/dL (76-140)
== END ==
PROVIDERS: PCP Family Medicine; Referring Provider Obstetrics & Gynecology; Visit Provider Obstetrics & Gynecology
DX: O99.810 Abnormal glucose complicating pregnancy (principal)
CPT/HCPCS: 82951; 82952

== ENCOUNTER → 2023-12-05 09:20 | Outpatient (CLI) | payer OTHER, SELFPAY ==
[2023-12-05 09:45] LABS: Hematocrit 30.8 % (36-46)
== END ==
LOC: LAB 09:21
PROVIDERS: PCP Family Medicine; Referring Provider Specialist; Visit Provider Specialist
DX: D50.9 Iron deficiency anemia, unspecified (principal)
CPT/HCPCS: 36415; 85014; 85018

== ENCOUNTER → 2024-01-05 16:07 | Outpatient (CLI) | payer OTHER, SELFPAY ==
[2024-01-06 10:23] LABS: Strep Grp B PCR NEG for Grp B Strep
== END ==
PROVIDERS: PCP Family Medicine; Visit Provider Obstetrics & Gynecology
DX: Z34.83 Encounter for supervision of other normal pregnancy, third trimester (principal); Z3A.37 37 weeks gestation of pregnancy
CPT/HCPCS: 87653

== ENCOUNTER 2024-01-11 10:48 | Outpatient (CLI) | payer OTHER, SELFPAY | END 2024-01-11 11:35 | disposition home or self-care (01) | LOC: OB 01-13 12:26 | PROVIDERS: PCP Family Medicine; Referring Provider Obstetrics & Gynecology; Visit Provider Obstetrics & Gynecology | DX: Z03.71 Encounter for suspected problem with amniotic cavity and membrane ruled out (principal); O36.8130 Decreased fetal movements, third trimester, not applicable or unspecified; Z3A.38 38 weeks gestation of pregnancy | CPT/HCPCS: 59025; 84112; G0378; G0379 ==

== ENCOUNTER 2024-01-22 07:06 | Inpatient (IN) | payer OTHER, SELFPAY ==
--- NOTE | 2024-01-22 08:09 | P.HPOB_ITS ---
OB HPI Date/Time Date of admission: 01/22/24 Date Patient Seen: 01/22/24 Time Patient Seen: 08:09 History of Present Condition Chief complaint: induction KARAN Calculator 2 Estimated Delivery Date Method Current WG Current Estimate 01/24/24 LMP (Certain) 39w 5d Other Estimates 01/30/24 Ultrasound #1 38w 6d Estimated Gestational Age (weeks): 39+5 : 9 Para: 2 care: good care, initiated at week #, number of visits (12) and pounds weight gain (14) Dating criteria OB: LMP confirmed by 1st trimester US Ultrasounds: normal 1st trimester US and normal mid trimester US Obstetrical complications: other (RPL) Medical complications OB: other (RPL) Indications Indication for induction OB: other (AMA, RPL) Preadmission Labs Last OB Lab Results: 2 Blood Type A Positive 01/22/24 07:29 Antibody Screen Negative 01/22/24 07:29 Hct 33.2 % (36-46) L 01/22/24 07:29 Hgb 11.7 g/dL (12.0-16.0) L 01/22/24 07:29 Hep Bs Antigen Negative s/c (NEGATIVE) 07/04/23 09:15 Hepatitis C Antibody Negative s/c (NEGATIVE) 07/04/23 09:15 Rubella Antibody 38.1 IU/mL (>15) 07/04/23 09:15 VZV IgG Antibody 452 index (Immune >165) 07/04/23 09:15 Glucose 1 Hr 50 gm 142 mg/dL (76-139) H 11/03/23 16:10 Group B Strep (PCR) Neg for grp b strep 01/05/24 16:07 Glucose Tolerance Testing: Fasting (84), 1 hr (90), 2 hr (141) and 3 hr (109) -: Chlamydia screen: negative and Gonorrhea screen: negative -: PAP smear: Normal Genetic Screens: Cell-free DNA: Normal (normal female) and Alpha-fetoprotein: Normal Prior (ies) Past Pregnancies Del. Date GA/Weeks Labor Lgth Wt Sex Route Outcome Anesthesia Place Delv Breastfeed Preg Comp Name 07/01/16 39.5 7 lb 11 oz Female vaginal live - full te rm epidural IH Dr Davis 12+ months none Janiya 01/20/20 39.4 2 8 lb 2 oz Male vaginal live - full term IH 8 months none [place] 05/02/21 5.4 spontaneous 08/31/21 4+ spontaneous 09/30/21 6 spontaneous 04/25/22 5.4 spontaneous 08/26/22 7 spontaneous Delivery Date: 08/26/22 Last Updated by: Kassy Alejandre RN Missed AB, needed D&C. FISH showed trisomy 22. Evaluation Evaluation Baseline heart rate: 140 Variability: Moderate (11-25) monitor accelerations: Present Monitor Decelerations: Absent Dilation (cm): 3 Effacement (%): 80 Dilation: 3-4 cm Effacement: >/=80% station: -1 Position of cervix: posterior Consistency: soft Bryan score: 9 PFSH Medical History (Updated 12/05/23 @ 09:12 by Aracely Jarquin MD) History of recurrent miscarriages Wears contact lenses Chicken pox (~1990) Irregular menstrual cycle Missed with demise before 20 completed weeks of gestation History of infertility (08/16/16) Migraine with aura and without status migrainosus, not intractable (11/22/15) Spontaneous vaginal delivery Surgical History (Updated 09/04/22 @ 20:43 by Shiloh Ojeda) Anesthesia History of tonsillectomy (~2014) Status post loop electrosurgical excision procedure (LEEP) of cervix (2010) History of third molar tooth extraction (2001) Family History (Updated 09/04/22 @ 20:45 by Shiloh Ojeda) Family/Other Heart disease Brother Hypothyroidism Grandfather Cancer Grandmother Cancer Grandfather Alcoholism Social History marital status: number of children: 2 household members: spouse and children lives independently: Yes caregiver/support person: Yes housing: house pets and animals: Yes (2 dogs) education level: master's degree occupational status: employed (dentist) current occupational exposures/hazards: No special amauri needs: No travel history: other (Going to [place] in September) seatbelt use: always helmet use: Yes water heater temp set < 120 deg: Yes working smoke detector in home: Yes fire extinguisher in home: Yes carbon monox detector in home: Yes firearms in home: Yes firearms unloaded and locked: Yes do you feel safe at home: Yes Smoking Status: Never smoker second hand exposure: No alcohol intake: former substance use type: does not use during the past year weight has: remained stable well-balanced diet: daily or most days daily servings fruits/ve or more times/day caffeine: Yes (1 cup coffee in AM, aware of 200mg limit) Type(s) of exercise: bicycling (stationary bike) and running additional social history: Owing to the fact that pt is an experienced mother and also that she has had several SABs (and therefore undergone the intake education call several times already), she declined to repeat the intake call at this time, which is perfectly reasonable. Pt reports that there have been no changes to her medical or social situation since the last intake to be updated in her chart. OB preload note completed in lieu of intake call. Meds Home Medications and Allergies Home Medications Medication Instructions Recorded Confirmed Type prenat.vits,delonte,viq-yjfi-wqfrx 1 tab PO DAILY 07/23/19 01/21/24 History pantoprazole 40 mg tablet,delayed 40 mg PO DAILY #30 tabs 11/21/23 01/21/24 Rx release (Protonix) Allergies Allergy/AdvReac Type Severity Reaction Status Date / Time Penicillins [PENICILLINS] Allergy Mild HIVES Verified 01/21/24 15:58 OB Exam Narrative Exam Narrative: Generally: Patient is sitting up in bed, no acute distress Lungs: Clear to auscultation bilaterally Cardiovascular: Regular rate and rhythm Fundal height: 38 cm Estimated weight: 7 Extremities: No edema Objective Labs 01/22/24 07:29 Assessment and Plan Assessment and Plan Assessment and Plan narrative: Assessment: 38-year-old 9 para 2 at 39-,5/7 weeks gestation for induction of labor Recurrent loss Advanced maternal age Abnormal 1 hour glucose, normal 3 hour Plan: AROM with clear amniotic fluid Pitocin as needed Epidural as necessary Expected management to spontaneous vaginal delivery Time-Based Coding :: [TOTAL MINUTES] spent with patient and on the chart (including review of chart, obtaining history, exam, reviewing outside data, placing orders, documenting exam and treatment plan, and counseling patient) on [DATE].
[2024-01-22 08:10] LABS: Add Manual Diff / Slide Review NO; Basophils Absolute Auto 0 /uL (0-100); Basophils Percent Auto 0.4 % (0-2); Eosinophils Absolute Auto 100 /uL (0-450); Eosinophils Percent Auto 1.3 % (2-4); Hematocrit 33.2 % (36-46); Hemoglobin 11.7 g/dL (12.0-16.0); Lymphocytes Absolute Auto 2200 /uL (1100-4500); Lymphocytes Percent Auto 37.1 % (25-40); Mean Corpuscular HGB Conc 35.2 % (30-36); Mean Corpuscular Hemoglobin 31.8 PG (26-34); Mean Corpuscular Volume 90.2 fL (80-100); Monocytes Absolute Auto 400 /uL (0-900); Monocytes Percent Auto 6.2 % (3-14); Neutrophils Absolute Auto 3200 /uL (1500-7000); Platelet Count 248 X10^3/uL (150-400); Red Blood Cell Count 3.68 X10^6/uL (4.0-5.2); White Blood Cell Count 5.8 X10^3/uL (4.5-11.0)
[2024-01-22 08:47] VITALS: BP 114/73
--- NOTE | 2024-01-22 13:19 | PM.OBPNLAB ---
Date/Time Date Patient Seen: 01/22/24 Time Patient Seen: 12:50 Pain Control Pain control: tolerating well Pelvic Exam station: -1 Amniotic membrane status: Ruptured Comments: Still leaking Contractions Contractions on admission: none Contraction frequency (min): 5 Contraction duration (min): 1 Contraction pattern: Regular (Pt not feeling contractions) Status status: Category l Heart Rate Baseline: 140 Monitor Accelerations: Present Monitor Decelerations: Absent Monitor Variability: Moderate Assessment and Plan Assessment: induction ongoing Comments: Pumping to get contractions going, if no success begin pitocin augmentation
[2024-01-22] MEDS: LACTATED RINGERS 1,000 ML 100 ML IV (13:47)
[2024-01-22] MEDS: OXYTOCIN PREMIX 30 UNIT/500 ML PLAST..BAG IV (13:48)
--- NOTE | 2024-01-22 21:27 | PM.OBPNLAB ---
Date/Time Date Patient Seen: 01/22/24 Time Patient Seen: 19:30 Pain Control Pain control: tolerating well Pelvic Exam Dilation (cm): 6 Effacement (%): 80 station: -1 Amniotic membrane status: Ruptured Contractions Contractions on admission: none Pitocin rate (mU/min): 5 Contraction frequency (min): 2 Contraction duration (min): 1 Contraction pattern: Regular Contraction intensity: Strong/Firm Status status: Category l Heart Rate Baseline: 135 Monitor Accelerations: Present Monitor Decelerations: Absent Monitor Variability: Moderate Assessment and Plan Assessment: induction ongoing Plan: continuous present management
--- NOTE | 2024-01-22 21:28 | PM.OBPNLAB ---
Date/Time Date Patient Seen: 01/22/24 Time Patient Seen: 21:00 Pain Control Comments: Starting to feel contractions as stronger Pelvic Exam Effacement (%): 80 station: -1 Amniotic membrane status: Ruptured Contractions Contractions on admission: none Monitor mode: External Pitocin rate (mU/min): 9 Contraction frequency (min): 3 Contraction duration (min): 1 Contraction pattern: Regular Contraction intensity: Strong/Firm Status status: Category l Heart Rate Baseline: 125 Monitor Accelerations: Present Monitor Decelerations: Absent Monitor Variability: Marked Assessment and Plan Assessment: active labor Plan: continuous present management Comments: Expectant management to
--- NOTE | 2024-01-22 22:45 | PM.OBPRVD ---
Events: Labor Induction Labor & Delivery Delivery date: 01/22/24 Cervical ripening method: none Induction method: AROM Delivery augmentation: pitocin Delivery monitor: external FHT and external uterine Route of delivery: Episiotomy description: None L&D Laceration Description: None Anesthesia Type: None Complications: None Narrative: Patient complete and pushed x1. At 10:13 p.m., a live female infant delivered spontaneously in the OLESYA presentation, over an intact perineum. No nuchal cord. The remainder of the body delivered without difficulty and was placed on mom's abdomen. Pitocin was given in the IV fluids. The cord was double clamped and cut after 1 minute. Cord bloods were obtained. The placenta delivered intact with a three-vessel cord at 10:35 p.m. the fundus was massaged to firm. The perineum was inspected and there were no lacerations. Apgars 9 at 1 minute and 10 at 5 minutes. BW 7#10.4oz . No analgesia. Mom and infant stable to recovery. Baby 1: gender: Female Presentation: vertex Position: Right Occiput Anterior Placenta delivery description: Spontaneous Cord Vessel Description: 3 Vessels and Clamped/Cut (After 1 minute) score (1 min): 9 score (5 min): 10 Plan for aftercare: Routine care
[2024-01-23] MEDS: ACETAMINOPHEN 325 MG TABLET 650 MG PO ×3 (03:34→15:03)
[2024-01-23] MEDS: IBUPROFEN 600 MG TABLET PO ×2 (06:44→13:09)
[2024-01-23 15:54] VITALS: BP 99/64; PULSE 67; RESP 16; TEMP 36.6
== END 2024-01-23 17:23 | disposition home or self-care (01) | DRG 807 ==
PROVIDERS: Admitting Provider Obstetrics & Gynecology; PCP Family Medicine; Referring Provider Obstetrics & Gynecology; Visit Provider Obstetrics & Gynecology
DX: O76 Abnormality in fetal heart rate and rhythm complicating labor and delivery (principal); Z37.0 Single live birth; Z3A.39 39 weeks gestation of pregnancy
CPT/HCPCS: 36415; 59050; 85025; 86850; 86900; 86901; G0379; J2590